=== PATIENT | female | born 1980 | race Caucasian/White ===

== ENCOUNTER 2016-10-01 06:24 | Day surgery (SDC) | payer OTHER ==
[2016-09-30 08:56] VITALS: BMI 20.7
[~2016-10-01 06:24] MED LIST: LACTATED RINGERS 1,000 ML IV SCH
[2016-10-01 07:05] VITALS: RESP 16; TEMP 96.8
[2016-10-01] MEDS ORDERED: LIDOCAINE 1% 20 ML VIAL (10MG/ML) FOR IV START INTRADERMA ONE (07:10)
[2016-10-01] MEDS ORDERED: MIDAZOLAM 2 MG/2 ML VIAL ONE (08:10)
[2016-10-01] MEDS ORDERED: fentaNYL (PF) 50 MCG/ML 2 ML AMP ONE (08:10)
--- NOTE | 2016-10-01 08:27 | P.PCN ---
Date of Procedure: 10/01/16 Procedure(s) Performed: Preoperative diagnoses= 1-Left sacroiliitis. 2-lumbar herniated disc disease. 3-cervical herniated disc disease. Postoperative diagnoses= same as preoperative diagnosis. Procedure= Left sacroiliac joint steroid injection under fluoroscopic guidance. Anesthesia= conscious sedation with Versed 2 mg and fentanyl 100 micrograms and local infiltration with lidocaine 1% 2 ml Estimated blood loss=minimal. Procedure indication= the patient had a history of severe chronic low back pain , diagnosed with sacroiliitis , unresponsive to conservative treatment. Procedure description= the patient was seen and identified in the preoperative holding area, risks and benefits and alternative of the procedure and possible complications discussed with the patient, and he agreed with the preceding, patient signed the consent, an IV was started, and vital signs were monitored and were stable throughout the procedure, patient was placed in the prone position or table and the lumbosacral area was prepped and draped with a sterile fashion, vital signs were closely monitored during the procedure, the fluoroscopy camera was placed in the contralateral oblique view on the left sacroiliac joint and the lower part of the joint was identified, local infiltration of the skin and subcutaneous tissue with lidocaine 1% 2 mL then a 22-gauge Quincke-type spinal needle advanced slowly under fluoroscopy and placed in the posterior and inferior border of the right sacroiliac joint, placement confirmed with AP and lateral view, and after appropriate needle placement confirmed and after negative aspiration for heme and CSF and there was no paresthesia during the injection, 3 ml of Marcaine 0.5% and 60 mg of Kenalog injected after negative aspiration, the needle removed, Patient tolerated the procedure well without any complication, The patient returned to supine position after the back was cleaned and a Band- Aid applied, the patient transported to recovery room in stable condition and he was monitored for 30 minutes before he was discharged home and then patient was reexamined before going home and patient was discharged in stable condition and patient will follow up with the pain clinic in a few weeks The patient reported that she had side effects from the Neurontin(stomach upset , and nausea) for this reason patient will be started on Lyrica 25 mg 3 times a day, and she will continue to use Motrin 600 mg times a day when necessary
[2016-10-01] MEDS ORDERED: IV FLUID CONTINUATION 1,000 ML IV ONE (08:30)
[2016-10-01 08:48] VITALS: BP 118/70; PULSE 79
--- NOTE | 2016-10-01 09:13 | FL ---
Fluoroscopy HISTORY: Pain 32 seconds fluoroscopy time supplied to the referring clinician. 1 intraoperative C-arm images docum ent the procedure. See dictated report from anesthesia.
== END 2016-10-01 09:04 | disposition home or self-care (01) ==
LOC: ORPAIN 06:24
PROVIDERS: ATTEND Specialist
DX: G89.29 Other chronic pain (principal); M46.1 Sacroiliitis, not elsewhere classified; M51.26 Other intervertebral disc displacement, lumbar region; M50.20 Other cervical disc displacement, unspecified cervical region; Z88.0 Allergy status to penicillin
CPT/HCPCS: 81025; J2250; J3010; G0260; 27096